=== PATIENT | male | born 1950 | race Caucasian/White ===

== ENCOUNTER 2018-02-04 05:31 | Inpatient (IN) ==
[2018-02-04] MEDS ORDERED: INFLUENZA VIRUS VACCINE 0.5 ML SYRINGE IM ONE (08:14)
[2018-02-04 09:24] LABS: Basophils % 0.1 % (0.0-0.8); Eosinophils # 0.1 10*3/uL (0.0-0.87); Eosinophils % 1.5 % (0.00-10.9); Hematocrit 41.2 VOL% (42.0-52.0); Hemoglobin 13.7 GM/DL (14.0-18.0); Immature Granulocytes % 0.4 %; Immature Granulocytes Absolute 0.03 #; Lymphocytes # 2.4 10*3/uL (1.4-4.0); Lymphocytes % 29.9 % (21.2-54.2); Mean Corpuscular HGB Conc 33.3 GM/DL (32-36); Mean Corpuscular Hemoglobin 34 PG (27-34); Mean Corpuscular Volume 102.5 FL (87-102); Mean Platelet Volume 11.3 FL (9.6-12.0); Monocytes # 0.7 10*3/uL (0.11-0.8); Monocytes % 8.8 % (1.7-12.7); Neutrophils # 4.8 10*3/uL (1.4-7.4); Neutrophils % 59.3 % (38.7-73.9); Platelet Count 182 T/CUMM (130-400); Red Blood Count 4.02 MC/CUMM (3.8-5.5); Red Cell Distribution Width 12.4 % (9.3-17.3)
[2018-02-04 09:43] LABS: Albumin 2.8 G/DL (3.4-5.0); Bilirubin,Total 0.4 MG/DL (0.2-1.0); Calcium 8.8 MG/DL (8.5-10.1); Osmolality,Calculated 276.7 MOS/KG (273-304); Potassium 4.9 MMOL/L (3.5-5.1); Total Protein 7.2 G/DL (6.4-8.3)
[2018-02-04 13:42] LABS: Risk Ratio 2.55; VLDL CHOLESTEROL 13.4 MG/DL
[2018-02-04] MEDS ORDERED: DIAZEPAM 5 MG TABLET PO ONE (14:32)
[2018-02-04] MEDS ORDERED: POTASSIUM CHLORIDE RIDER 10 MEQ in PREMIX 1 EACH IV PRN (14:32)
[2018-02-04] MEDS ORDERED: diphenhydrAMINE CAP 25 MG CAPSULE PO ONE (14:32)
[2018-02-04] MEDS ORDERED: MAGNESIUM SULF RIDER 2 GM in PREMIX 1 EACH IV PRN (14:32)
[2018-02-04 14:39] LABS: Barbiturates Screen,Urine Negative (Negative); Benzodiazepines Screen,Urine Negative (Negative); Cannabinoid Screen,Urine Positive (Negative); Opiate Screen,Urine Negative (Negative); Phencyclidine Screen,Urine Negative (Negative)
[2018-02-04] MEDS: ASPIRIN CHEW 81 MG TABLET PO SCH (16:53)
[2018-02-04] MEDS: ENOXAPARIN 60 MG/0.6 ML SYRINGE SUBCUT SCH (16:54)
[2018-02-04] MEDS: DIVALPROEX SPRINKLE 125 MG CAPSULE PO SCH (21:25)
[2018-02-04] MEDS: SOTALOL 80 MG TABLET PO SCH (21:25)
[2018-02-04] MEDS: MAGNESIUM OXIDE 400 MG TABLET PO SCH (21:25)
[2018-02-05 06:18] LABS: Basophils % 0.3 % (0.0-0.8); Eosinophils # 0.3 10*3/uL (0.0-0.87); Eosinophils % 4.3 % (0.00-10.9); Hematocrit 42.2 VOL% (42.0-52.0); Immature Granulocytes % 0.2 %; Immature Granulocytes Absolute 0.01 #; Lymphocytes # 2.1 10*3/uL (1.4-4.0); Mean Corpuscular HGB Conc 33.2 GM/DL (32-36); Mean Corpuscular Hemoglobin 34 PG (27-34); Mean Corpuscular Volume 101.7 FL (87-102); Monocytes # 0.6 10*3/uL (0.11-0.8); Monocytes % 10.9 % (1.7-12.7); Neutrophils # 2.9 10*3/uL (1.4-7.4); Neutrophils % 49.3 % (38.7-73.9); Platelet Count 206 T/CUMM (130-400); Red Blood Count 4.15 MC/CUMM (3.8-5.5); Red Cell Distribution Width 12.3 % (9.3-17.3); White Blood Count 5.9 T/CUMM (4-12)
[2018-02-05] MEDS: ENOXAPARIN 60 MG/0.6 ML SYRINGE SUBCUT SCH (06:35)
[2018-02-05 06:45] LABS: Calcium 8.7 MG/DL (8.5-10.1); Osmolality,Calculated 275.7 MOS/KG (273-304)
[2018-02-05] MEDS ORDERED: DIAZEPAM 5 MG TABLET ONE (08:42)
[2018-02-05] MEDS ORDERED: diphenhydrAMINE CAP 25 MG CAPSULE ONE (08:44)
[2018-02-05] MEDS: SOTALOL 80 MG TABLET PO SCH ×2 (08:57→21:22)
[2018-02-05] MEDS: THIAMINE 100 MG TABLET PO SCH (08:58)
[2018-02-05] MEDS: MAGNESIUM OXIDE 400 MG TABLET PO SCH ×2 (08:58→21:44)
[2018-02-05] MEDS: ASPIRIN CHEW 81 MG TABLET PO SCH (08:58)
[2018-02-05] MEDS: ISOSORBIDE MONONITRATE 30 MG TABLET PO SCH (08:58)
[2018-02-05] MEDS: SODIUM CHLORIDE 0.45% 1,000 ML IV SCH ×4 (08:59→15:34)
[2018-02-05] MEDS ORDERED: LISINOPRIL 5 MG TABLET PO SCH (09:00)
[2018-02-05] MEDS ORDERED: ASPIRIN EC 81 MG TABLET PO SCH (09:00)
[2018-02-05] MEDS: ATORVASTATIN 40 MG TABLET PO SCH (09:08)
[2018-02-05] MEDS ORDERED: MIDAZOLAM 2 MG/2 ML VIAL ONE (09:58)
[2018-02-05] MEDS ORDERED: fentaNYL 100 MCG/2 ML VIAL ONE ×2 (09:59→11:58)
[2018-02-05] MEDS ORDERED: LIDOCAINE 1% 20 ML VIAL ONE (10:00)
[2018-02-05] MEDS ORDERED: HEPARIN 5,000 UNIT/1 ML VIAL ONE (10:59)
[2018-02-05] MEDS ORDERED: TIROFIBAN 5,000 MCG/100 ML PREMIX IV ONE (11:01)
[2018-02-05] MEDS ORDERED: TIROFIBAN 5,000 MCG/100 ML PREMIX IV SCH (11:07)
[2018-02-05] MEDS ORDERED: TICAGRELOR 90 MG TABLET ONE (12:24)
[2018-02-05] MEDS ORDERED: fentaNYL 100 MCG/2 ML VIAL IV PRN (13:06)
[2018-02-05] MEDS ORDERED: ACETAMINOPHEN 325 MG TABLET PO PRN (13:06)
[2018-02-05] MEDS ORDERED: SODIUM CHLORIDE 0.9% 1,000 ML IV SCH (13:30)
[2018-02-05 14:30] LABS: Troponin I 0.238 NG/ML (0.00-0.045)
[2018-02-05] MEDS ORDERED: ONDANSETRON 4 MG/2 ML VIAL IV PRN (15:19)
[2018-02-05] MEDS ORDERED: PROMETHAZINE 25 MG/1 ML VIAL IM PRN (15:19)
[2018-02-05] MEDS: DIVALPROEX SPRINKLE 125 MG CAPSULE PO SCH (21:44)
[2018-02-05] MEDS: TICAGRELOR 90 MG TABLET PO SCH (21:45)
[2018-02-05 21:58] LABS: Troponin I 0.166 NG/ML (0.00-0.045)
[2018-02-06 05:30] LABS: Basophils % 0.2 % (0.0-0.8); Eosinophils # 0.1 10*3/uL (0.0-0.87); Eosinophils % 1.2 % (0.00-10.9); Hematocrit 36.8 VOL% (42.0-52.0); Hemoglobin 12.1 GM/DL (14.0-18.0); Immature Granulocytes % 0.4 %; Immature Granulocytes Absolute 0.03 #; Lymphocytes # 1.8 10*3/uL (1.4-4.0); Lymphocytes % 21.6 % (21.2-54.2); Mean Corpuscular HGB Conc 32.9 GM/DL (32-36); Mean Corpuscular Hemoglobin 33 PG (27-34); Mean Corpuscular Volume 101.7 FL (87-102); Mean Platelet Volume 11.7 FL (9.6-12.0); Monocytes # 0.9 10*3/uL (0.11-0.8); Monocytes % 10.9 % (1.7-12.7); Neutrophils # 5.6 10*3/uL (1.4-7.4); Neutrophils % 65.7 % (38.7-73.9); Platelet Count 208 T/CUMM (130-400); Red Blood Count 3.62 MC/CUMM (3.8-5.5); Red Cell Distribution Width 12.3 % (9.3-17.3); White Blood Count 8.4 T/CUMM (4-12)
[2018-02-06 05:31] LABS: Albumin 2.3 G/DL (3.4-5.0); Calcium 8.4 MG/DL (8.5-10.1); Osmolality,Calculated 274.7 MOS/KG (273-304); Potassium 4.3 MMOL/L (3.5-5.1); Total Protein 6.5 G/DL (6.4-8.3)
[2018-02-06 06:54] VITALS: BP 91/58
[2018-02-06] MEDS ORDERED: LISINOPRIL 2.5 MG TABLET PO SCH (09:00)
[2018-02-06] MEDS: SOTALOL 80 MG TABLET PO SCH (09:02)
[2018-02-06] MEDS: ISOSORBIDE MONONITRATE 30 MG TABLET PO SCH (09:02)
[2018-02-06] MEDS: MAGNESIUM OXIDE 400 MG TABLET PO SCH (09:04)
[2018-02-06] MEDS: ATORVASTATIN 40 MG TABLET PO SCH (09:04)
[2018-02-06] MEDS: ASPIRIN CHEW 81 MG TABLET PO SCH (09:05)
[2018-02-06] MEDS: TICAGRELOR 90 MG TABLET PO SCH (09:05)
[2018-02-06] MEDS: THIAMINE 100 MG TABLET PO SCH (09:05)
== END 2018-02-06 13:26 | disposition home or self-care (01) | DRG 247 ==
LOC: N.TELES 07:25 → SUATTDRO 07:25
PROVIDERS: ADMIT Internal Medicine; ATTEND Internal Medicine
PROC: CLCCHCL (ICD-10-PCS; 2018-02-05 10:15)